=== PATIENT | female | born 1970 | race Caucasian/White ===

== ENCOUNTER 2020-09-26 12:21 | Emergency (ER) | payer SELFPAY | END 2020-09-27 05:35 | disposition left against medical advice (07) | DX: Z53.21 Procedure and treatment not carried out due to patient leaving prior to being seen by health care provider (principal) | CPT/HCPCS: 82962; 99199 ==

== ENCOUNTER 2021-11-12 13:42 | Emergency (ER) | payer SELFPAY ==
[2021-11-12 13:51] VITALS: BP 115/61; PULSE 71; RESP 19; TEMP 36.5; O2SAT 98
--- NOTE | 2021-11-12 14:02 | ED.URI ---
HPI - URI/Sore Throat General Chief Complaint: Upper Respiratory Infection Stated Complaint: Sinus Pain/Vomiting Time Seen by Provider: 11/12/21 14:00 Source: patient and RN notes reviewed Mode of arrival: ambulatory Limitations: no limitations History of Present Illness HPI Narrative: 51-year-old female presented for complaint of sinus pressure, congestion and headache worsening over the past 5 days. Endorses occasional nonproductive cough, which worsens the head pain. Also reports 1 episode of vomiting blood-tinged mucus today related to the post nasal drainage. Stats she has taken 'sinus medicine.' Negative COVID test 2 days ago in ER, stating she was told she had viral syndrome. Denies chest pain, palpitations, shortness of breath, wheezing, sore throat, fevers or chills. MD elicited complaint: cough Related Data Home Medications Medication Instructions Recorded Confirmed escitalopram oxalate 10 mg tablet 10 mg PO HS 11/12/21 11/12/21 (Lexapro) Allergies Allergy/AdvReac Type Severity Reaction Status Date / Time No Known Allergies Allergy Verified 11/12/21 14:15 Review of Systems Review of Systems: CONSTITUTIONAL: Denies malaise, chills, sweats, fever EYES: Denies visual changes, redness, or discharge ENT: Reports rhinorrhea, congestion, sinus pain, otalgia CARDIOVASCULAR: Denies chest pain, palpitations, edema RESPIRATORY: Reports cough, post nasal drainage. Denies dyspnea GASTROINTESTINAL: Denies abdominal pain, nausea, vomiting, diarrhea SKIN: Denies rash or itching MUSCULOSKELETAL: Denies myalgia Exam Narrative: GENERAL: Ill-appearing, nontoxic EYES: conjunctivae clear; bilateral eyes appear puffy ENT: Mucous membranes moist. TMs pearly perez with dull light reflex with fluid levels bilaterally; no tragal tenderness. CHEST: Lungs with faint wheezing left posterior; No respiratory distress, speaks in full sentences. HEART: Regular rate and rhythm. No murmur heard. SKIN: Warm, dry, no rash. NEURO: Alert and oriented x3. PSYCH: Normal mood and affect Course Course Emergency Course: Patient is aware of diagnosis, understands and agrees to treatment plan. Anticipatory guidance given. Patient agrees to follow-up as directed and is aware of reasons to seek care at the emergency department. Portions of this record may have been created with voice recognition software Level of Care: Express Care Visit Vital Signs Vital signs: reviewed MDM - URI/Sore Throat MDM Narrative Medical decision making narrative: Advised supportive measures and signs/symptoms to go to the ER. VSS. Pt is appropriate for outpt treatment and f/u. Differential Diagnosis Differential diagnosis: Likely upper respiratory infection, sinusitis and viral infection Discharge Plan Discharge Clinical Impression: Upper respiratory infection Patient Disposition: Home, Self-Care Condition: Stable Instructions: Upper Respiratory Infection (ED) Additional Instructions: Recommend Flonase spray and Zyrtec (or Claritin/Berkley) over the counter Cough syrup may cause drowsiness; avoid driving or take it at night time. Tylenol 1000mg every 8 hours as needed for pain Symptomatic treatment includes: rest, fluids, and increase humidity of the air at home. If no improvement in 3 days or symptoms worsen after the above treatments, start the antibiotic Follow up with your primary care provider as needed in 1-2 weeks Go to the ER for worsening symptoms or concerns Prescriptions: New cetirizine [Zyrtec] 10 mg tablet 10 mg PO DAILY PRN (Reason: congestion) Qty: 30 0RF methylprednisolone [Medrol (Jeff)] 4 mg tablets,dose pack See Rx Instructions .ROUTE .COMPLEX Qty: 21 0RF Rx Instructions: orally per package directions fluticasone propionate [Flonase Allergy Relief] 50 mcg/actuation spray,suspension 1 spray intranasal DAILY PRN (Reason: allergy symptoms) Qty: 16 0RF Rx Instructions: administer into
== END 2021-11-12 14:19 | disposition home or self-care (01) ==
PROVIDERS: Emergency Provider Nurse Practitioner Family
DX: J06.9 Acute upper respiratory infection, unspecified (principal)
CPT/HCPCS: 99213; G0463

== ENCOUNTER 2021-12-24 09:25 | Inpatient (IN) | payer MEDICAID, SELFPAY ==
[2021-12-24] VITALS (19 sets, daily range): BP systolic 110–146; BP diastolic 61–90; PULSE 67–89; RESP 10–22; TEMP 36.6–36.8; O2SAT 94–100; BMI 37.5
--- NOTE | ~2021-12-24 | XR_ITS ---
XR chest 2V DATE: 12/24/2021 10:00 INDICATION: Midsternal chest pain with inspiration TECHNIQUE: PA and lateral views COMPARISON: None FINDINGS: Normal heart size. No hilar or mediastinal enlargement. No pulmonary infiltrate or consolid ation, pleural effusion or pulmonary vascular congestion or pneumothorax. Included skeletal structures are unremarkable. IMPRESSION: No active cardiopulmonary disease Reviewed, dictated and finalized at location B.
--- NOTE | ~2021-12-24 | US_ITS ---
EXAMINATION: US abdomen limited DATE: 12/24/2021 16:39 INDICATION: Epigastric abdominal pain TECHNIQUE: Multiple grayscale and Doppler ultrasound images of the abdomen were obtained. COMPARISON: None available FINDINGS: Bowel gas obscures visualization of the pancreas. The liver demonstrates increased echogeni city, heterogenous echotexture, and decreased through transmission. No surface nodularity. Normal hep atopetal flow in the main portal vein. The gallbladder is normal with no abnormal wall thickening, pe richolecystic fluid or stones. The normal common bile duct measures 5 mm. There was no sonographic Mu rphy sign. IMPRESSION: 1. Diffuse hepatic steatosis. Reviewed, dictated and finalized at location A.
--- NOTE | ~2021-12-24 | CT_ITS ---
EXAMINATION: CTA chest PE protocol DATE: 12/24/2021 17:39 CDT INDICATION: Chest pain with inspiration TECHNIQUE: Computed tomographic angiography (CTA) of the chest was performed with 100 mL Omnipaque-35 0 intravenous contrast. The dose-length product was 626.66 mGy-cm. Maximum intensity projection 3D-re constructions of the aorta and other arteries were constructed by the technologist on a separate work station. Automated exposure control and iterative reconstruction technique were employed. COMPARISON: None. FINDINGS: Study is technically adequate without evidence for pulmonary embolism. No significant pleur al or pericardial effusion. No evidence for aortic aneurysm or dissection. Borderline heart size. Upp er abdomen is unremarkable. Cyst there is dependent atelectasis. No endobronchial lesions. There is a 4 mm right middle lobe nodule, likely benign. IMPRESSION: 1. No acute cardiopulmonary disease. No evidence for pulmonary embolism. 2: Right middle lobe nodule measuring 4 mm, likely benign. Follow-up low dose CT chest in 12 months r ecommended. Reviewed, dictated and finalized at location A. IMPRESSION: 1. No acute cardiopulmonary disease. No evidence for pulmonary embolism. 2: Right middle lobe nodule measuring 4 mm, likely benign. Follow-up low dose C T chest in 12 months recommended.
--- NOTE | 2021-12-24 09:35 | ECG_ITS ---
Measurements Intervals [place] Rate: 80 P: 61 [place]: 166 QRS: 47 QRSD: 89 T: 1 QT: 372 QTc: 430 Interpretive Statements SINUS RHYTHM POSSIBLE LEFT ATRIAL ENLARGEMENT INCOMPLETE RIGHT BUNDLE BRANCH BLOCK LOW QRS VOLTAGE IN PRECORDIAL LEADS MINIMAL Q WAVES- INFERIOR LEADS BORDERLINE ST-T WAVE ABNORMALITY- ANT/INF LEADS BORDERLINE ECG NO PREVIOUS ECG AVAILABLE FOR COMPARISON Electronically Signed On 12-24-2021 10:22:42 CDT by Adrian Gomez D.O.
[2021-12-24 09:44] LABS: Basophils Absolute Auto 0.1 K/mm3 (0.0-0.1); Basophils Percent Auto 0.5 % (0.2-1.2); Eosinophils Absolute Auto 0.3 K/mm3 (0-0.3); Eosinophils Percent Auto 2.8 % (0-4.4); Hemoglobin 14.3 g/dL (12.0-15.0); Immature Granulocyte Absolute 0.02 K/mm3 (0.00-0.031); Immature Granulocyte Percent A 0.2 % (0-0.5); Lymphocytes Absolute Auto 3.69 K/mm3 (0.9-3.2); Lymphocytes Percent Auto 34.3 % (18.3-44.2); Mean Corpuscular HGB Conc 33.3 g/dl (32-36); Mean Corpuscular Hemoglobin 30.1 pg (26-34); Mean Corpuscular Volume 90.5 fl (80-100); Mean Platelet Volume 9.8 fl (7.4-10.4); Monocytes Absolute Auto 0.7 K/mm3 (0.1-0.6); Monocytes Percent Auto 6.8 % (2.6-8.5); Neutrophils Percent Auto 55.4 % (45.5-73.1); Platelet Count Result 277 k/mm3 (150-375); Red Blood Count 4.75 M/mm3 (4.2-5.4); Red Cell Distribution Width 12.9 % (11.5-14.5); White Blood Count 10.8 K/mm3 (4.5-10.0)
[2021-12-24 09:54] LABS: Prothrombin Time 12.3 Seconds (11.1-14.7)
[2021-12-24 09:55] LABS: Partial Thromboplastin Time 26.9 SECONDS (22.3-36.8)
--- NOTE | 2021-12-24 10:01 | PC.NURSE ---
Patient off unit to radiology.
--- NOTE | 2021-12-24 10:04 | PC.NURSE ---
ASA held per verbal order.
[2021-12-24 10:07] LABS: Alanine Aminotransferase 32 U/L (6-35); Albumin Level 4.3 g/dL (3.5-5.1); Alkaline Phosphatase 122 U/L (38-126); Anion Gap 8 mmol/L (8-16); Aspartate Amino Transferase 50 U/L (14-36); Bilirubin,Total 0.4 mg/dL (0.2-1.3); Blood Urea Nitrogen 11 mg/dL (7-17); Calcium 8.9 mg/dL (8.4-10.2); Carbon Dioxide 24 mmol/L (22-30); Chloride 105 mmol/L (98-107); Estimated CRCL calculation 63 ml/min; Estimated Glomerular Filt Rate > 60; Glucose 147 mg/dL (65-110); Lipase 103 U/L (23-300); Potassium 4.2 mmol/L (3.4-5.0); Sodium 137 mmol/L (137-145)
--- NOTE | 2021-12-24 10:09 | ED.SOB ---
HPI - SOB/Dyspnea General Chief Complaint: Shortness of Breath/Dyspnea Stated Complaint: cheat pain, SOB, tongue swelling Time Seen by Provider: 12/24/21 09:39 History of Present Illness HPI Narrative: 51-year-old female history of anxiety presents emergency room for evaluation of inspiratory chest pain for 3 days. Patient also complaining of swollen tongue , which is caused her to bite her tongue on numerous occasions. Patient states the chest pain is worse when she takes in a deep breath. Admits to heavy tobacco use. Reports a cough, but is no different than her regular smoker's cough. No recent URI symptoms. No radiating pain, no nausea vomiting, no dizziness. Denies history of PE or DVT Related Data Home Medications Medication Instructions Recorded Confirmed escitalopram oxalate 10 mg tablet 10 mg PO HS 11/12/21 11/12/21 (Lexapro) Allergies Allergy/AdvReac Type Severity Reaction Status Date / Time No Known Allergies Allergy Verified 11/12/21 14:15 Review of Systems Review of Systems: CONSTITUTIONAL: Denies fever, chills, or sweats. EYES: Denies visual changes, redness, or discharge. ENT: Reports a swollen tongue CARDIOVASCULAR: Reports chest pain RESPIRATORY: Reports cough. GASTROINTESTINAL: Denies abdominal pain, nausea, vomiting, or diarrhea. GENITOURINARY: Denies dysuria or hematuria. SKIN: Denies rash or itching. MUSCULOSKELETAL: Denies back pain, joint pain, or myalgia. NEUROLOGIC: Denies headache, numbness, dizziness, or weakness. PSYCHIATRIC: Denies anxiety or depression. Exam Narrative: GENERAL: Well-appearing, well-nourished, no physical limitations, and in no acute distress. HEAD: Normocephalic, atraumatic. EYES: Conjunctivae normal, PERRLA and EOMI. CHEST: Clear to auscultation. No respiratory distress. No wheezes rales or rhonchi. No tenderness. HEART: Regular rate and rhythm. No murmur heard. Normal peripheral pulses. EXTREMITIES: Normal range of motion. No edema. No clubbing or cyanosis SKIN: Warm, dry, no rash. No noted wounds NEURO: No focal deficits. Alert and oriented x3. MAEW. CN's II-XI intact bilaterally, normal gait PSYCH: Cooperative. Normal mood and affect. Course Course Emergency Course: 1040: Discussed case with Dr. Tyler's nurse practitioner, Emma. She recommends patient be admitted for serial troponins and observation. Recommended to not anticoagulate patient at this time. Vital Signs Vital signs: Vital Signs Temperature 36.6 C 12/24/21 09:32 Pulse Rate 85 12/24/21 09:32 Respiratory Rate 16 12/24/21 09:32 Blood Pressure 146/85 H 12/24/21 09:32 Pulse Oximetry 98 12/24/21 09:32 Oxygen Delivery Room Air 12/24/21 09:32 Temperature 36.6 C 12/24/21 09:32 Pulse Rate 67 12/24/21 10:45 Respiratory Rate 12 12/24/21 10:45 Blood Pressure 146/85 H 12/24/21 09:32 Pulse Oximetry 97 12/24/21 10:45 Oxygen Delivery Room Air 12/24/21 10:01 MDM - SOB/Dyspnea MDM Narrative Medical decision making narrative: 51-year-old female with no cardiac history presented the emergency room complaints of inspiratory chest pain for 3 days. EKG showed no acute changes however there were some Q waves in lead II and aVF. Troponin was bumped to 3.1, likely an NSTEMI. Discussed case with Dr. Tyler with cardiology will admit patient to the IMU. Lab Data Result diagrams: 12/24/21 09:38 12/24/21 09:38 Labs: Lab Results 12/24/21 12/24/21 12/24/21 Range/Units 09:38 09:38 09:38 WBC 10.8 H (4.5-10.0) K/mm3 RBC 4.75 (4.2-5.4) M/mm3 Hgb 14.3 (12.0-15.0) g/dL Hct 43.0 (37.0-47.0) % MCV 90.5 (80-100) fl MCH 30.1 (26-34) pg MCHC 33.3 (32-36) g/dl RDW 12.9 (11.5-14.5) % Plt Count 277 (150-375) k/mm3 MPV 9.8 (7.4-10.4) fl Immature Gran % (Auto) 0.2 (0-0.5) % Neut % (Auto) 55.4 (45.5-73.1) % Lymph % (Auto) 34.3 (18.3-44.2) % [place] % (Auto) 6.8 (2.6-8.5)
--- NOTE | 2021-12-24 10:33 | ECG_ITS ---
Measurements Intervals [place] Rate: 72 P: 57 [place]: 175 QRS: 51 QRSD: 90 T: 27 QT: 412 QTc: 451 Interpretive Statements SINUS RHYTHM POSSIBLE LEFT ATRIAL ENLARGEMENT INCOMPLETE RIGHT BUNDLE BRANCH BLOCK LOW QRS VOLTAGE IN PRECORDIAL LEADS MINIMAL Q WAVES- INFERIOR LEADS BORDERLINE ST-T WAVE ABNORMALITY- ANT/INF LEADS BORDERLINE ECG COMPARED TO ECG 12/24/2021 09:32:20 NO SIGNIFICANT CHANGES Electronically Signed On 12-24-2021 11:11:01 CDT by Adrian Gomez D.O.
[2021-12-24] MEDS: ASPIRIN 81 MG CHEWABLE TABLET 324 MG PO (10:36)
[2021-12-24 10:41] LABS: D Dimer 0.36 ug/mL (<0.48)
[2021-12-24 11:08] LABS: SARS-CoV-2 RNA PCR Negative
--- NOTE | 2021-12-24 11:26 | PC.NURSE ---
Patient report given to MARTHA Clark. All questions answered and care of patient transferred.
[2021-12-24] MEDS: MORPHINE SULFATE (*CRX) 4 MG/ML INJ IV PUSH (12:29)
[2021-12-24] MEDS: ONDANSETRON INJ 4 MG/2 ML VIAL IV PUSH (12:29)
--- NOTE | 2021-12-24 13:42 | PM.IMHP ---
H&P: HPI History of Present Illness Date/Time: 12/24/21 13:42 Chief Complaint: Chest pain/shortness of breath/tongue swelling Narrative: This is a 51-year-old female patient who has a history of depression and anxiety. The patient came to the emergency room to be evaluated for chest pain that started approximately 3 days ago. The patient stated that she had epigastric discomfort that got worse with activity. She has no fever chills or cough except for her regular smoker's cough. The patient has no prior history of any PE or DVTs. The patient stated that this feels like pleuritic pain. She stated when she takes deep breaths at hurts worse. She also states that with activity it hurts worse. Rest makes it feels better. Patient does not take any aspirin or anticoagulant. The patient was given morphine in the emergency room and the patient stated that the morphine took her pain away for a short period time but the pain and then came back. The patient stated that she had epigastric pain that radiated to her left shoulder and left arm. She also felt some discomfort in her jaw line. Her white count was noted to be 10.8. Chest x-ray was read as no acute cardiopulmonary disease. First troponin was noted to be 3.170 initially with the 3 hour troponin being 3.090 and the 6 hour being 3.320. The patient was given morphine which appeared to help somewhat. Patient was found to be negative for COVID. The patient was given an aspirin, Zofran, morphine, and Decadron in the emergency room. EKG was read as sinus rhythm. Possible left atrial enlargement. Incomplete right bundle-branch block. Low QRS voltage in precordial leads. Minimal Q-waves inferior leads. Borderline ST T wave abnormality. Cardiology has been consulted and has already reviewed the case. Cardiology suggested a loading dose of Plavix and heparin drip. Is also recommended that the patient be started on atorvastatin and order an echo. The patient is being admitted for inpatient status on the date of service of 12/24/2021 Review of Systems Review of Systems: See HPI All systems reviewed & are unremarkable except as noted in HPI and below Constitutional: Constitutional: Reports as per HPI and Reports no additional constitutional complaints Eyes: Eyes: Reports as per HPI and Reports no additional eye complaints ENT: Reports system reviewed and no additional complaints, except as documented and Reports Normal hearing present Cardiovascular: Cardiovascular: Reports no additional cardiovascular complaints Respiratory: Respiratory: Reports no additional respiratory complaints and Reports no additional respiratory complaints Gastrointestinal: Gastrointestinal: Reports as per HPI and Reports no additional gastrointestinal complaints Musculoskeletal: Musculoskeletal: Reports no additional musculoskeletal complaints Integumentary/Breasts: Skin/Breast: Reports system reviewed and no additional complaints, except as docu and Reports as per HPI Neurologic: Reports system reviewed and no additional complaints, except as documented, Reports as per HPI and Reports Normal hearing present Psychiatric: Psychiatric: Reports no additional psychiatric complaints and Reports as per HPI Endocrine: Endocrine: Reports no additional endocrine complaints Hematologic/Lymphatic: Hematologic/Lymphatic: Reports no additional hematologic/lymphatic complaints Allergic/Immunologic: Allergic/Immunologic: Reports no additional allergic/immunologic complaints PMFSH Past Medical History Medical History (Updated 12/24/21 @ 16:17 by Deisy Landry NP) Acute sinus infection Depression with anxiety Seasonal allergies Surgical History Surgical History H/O tubal ligation Family History Family History Grandparent Heart disease Father MVA (motor vehicle accident) Mother MVA (motor vehicle a
[2021-12-24] MEDS: MORPHINE SULFATE (*CRX) 2 MG/ML INJ IV PUSH ×3 (15:35→20:48)
--- NOTE | 2021-12-24 16:11 | ADMGEN ---
This patient, Lidia Quinones, was admitted to IMU Room 206-02. Patient/family oriented to hospital policies and general routines including ID bracelet, bed and alarms, visiting hours, pain management, procedures, bathroom and other care routines, personal items, smoking policy, room service/diet, and visiting hours. Information on how to activate the Rapid Response Team has been discussed. Patient/Family are encouraged to report perceived risks to care and to ask questions if they do not understand what they are told or what they should do.
--- NOTE | 2021-12-24 16:25 | PM.CNCAR ---
Assessment and Plan Assessment and plan (1) Acute non-ST elevation myocardial infarction (NSTEMI): Code(s): I21.4 - Non-ST elevation (NSTEMI) myocardial infarction Status: Acute (2) Chest pain: Code(s): R07.9 - Chest pain, unspecified Status: Acute (3) Depression with anxiety: Code(s): F41.8 - Other specified anxiety disorders Status: Acute Plan Agree with CTA to rule out PE. Given degree of troponin elevation, would treat as ACS for now with Heparin drip, ASA (already loaded, would continue with 81mg daily), Plavix load of 600mg followed by 75mg, high-intensity statin. Will obtain echocardiogram. Although her clinical story sounds suspicious for possible myopericarditis, would need to rule out ischemic heart disease first. NPO at midnight for possible cardiac cath. History of Present Illness History of Present Illness Consult date/time: 12/24/21 16:25 Requesting physician: Christian Mckeon APRN Consult reason: chest pain Reason For Visit: nstemi Narrative: Patient is a 51-year-old female with a history of anxiety and depression who presented to the ER with chest pain x 3 days. Patient locates her pain to the epigastric region. Started suddenly 3 days ago, patient isn't sure what she was doing at the time of the onset of pain, but thinks she was resting. Pain has been constant. Worsens with laying down, improves with sitting up. Reports exertional shortness of breath. No radiation of the pain. Reports having pleurisy two years ago, but states this feels different. Has not had chest pain in the past. No other medical issues. Smokes 6 cigarettes daily. Occasional ETOH. No recreational drug use. Patient states she had a sinus infection approximately 4 weeks ago. Review of Systems Review of Systems: All systems reviewed & are unremarkable except as noted in HPI and below (HPI) Constitutional: Constitutional: Denies body ache(s), Denies chills and Denies night sweats Cardiovascular: Cardiovascular: Reports chest pain, Denies leg edema, Denies lightheadedness and Denies palpitations Respiratory: Respiratory: Denies cough, Denies hemoptysis, Reports dyspnea on exertion and Denies wheezing Gastrointestinal: Gastrointestinal: Denies abdominal pain, Denies diarrhea, Denies nausea and Denies vomiting Hematologic/Lymphatic: Hematologic/Lymphatic: Denies easy bleeding and Denies easy bruising PMFSH Past Medical History Medical History Acute sinus infection Depression with anxiety Seasonal allergies Surgical History Surgical History H/O tubal ligation Family History Family History Grandparent Heart disease Father MVA (motor vehicle accident) Mother MVA (motor vehicle accident) Social History Social History Social History: The patient is and lives with her . She had 2 children but one is now . Her is the poa. She still continues to smoke 6 cigarettes a day. 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 She stated that she is a Social drinker. She denies any marijuana or other illicit drugs. Code status full code Smoking status: Current some day smoker Meds Home Medications and Allergies Home Medications Medication Instructions Recorded Confirmed Type amoxicillin 875 mg-potassium 1 tablet PO Q12H 7 days #14 tabs 11/12/21 Rx clavulanate 125 mg tablet cetirizine 10 mg tablet (Zyrtec) 10 mg PO DAILY PRN congestion #30 11/12/21 Rx tabs escitalopram oxalate 10 mg tablet 10 mg PO HS 11/12/21 11/12/21 History (Lexapro) fluticasone propionate 50 1 spray intranasal DAILY PRN 11/12/21 Rx mcg/actuation nasal allergy symptoms #16 grams spray,suspension (Flonase Allergy Relief) methylprednisolone 4 mg tablets in See Rx Instruct
[2021-12-24 16:59] LABS: Basophils Absolute Auto 0.1 K/mm3 (0.0-0.1); Basophils Percent Auto 0.4 % (0.2-1.2); Eosinophils Absolute Auto 0.2 K/mm3 (0-0.3); Eosinophils Percent Auto 1.5 % (0-4.4); Hematocrit 42.4 % (37.0-47.0); Hemoglobin 13.9 g/dL (12.0-15.0); Immature Granulocyte Absolute 0.04 K/mm3 (0.00-0.031); Immature Granulocyte Percent A 0.3 % (0-0.5); Lymphocytes Absolute Auto 3.44 K/mm3 (0.9-3.2); Lymphocytes Percent Auto 28.5 % (18.3-44.2); Mean Corpuscular HGB Conc 32.8 g/dl (32-36); Mean Corpuscular Hemoglobin 29.8 pg (26-34); Monocytes Absolute Auto 0.7 K/mm3 (0.1-0.6); Monocytes Percent Auto 6.1 % (2.6-8.5); Neutrophils Absolute Auto 7.6 K/mm3 (1.3-6.7); Neutrophils Percent Auto 63.2 % (45.5-73.1); Platelet Count Result 257 k/mm3 (150-375); Red Blood Count 4.66 M/mm3 (4.2-5.4); Red Cell Distribution Width 12.9 % (11.5-14.5); White Blood Count 12.1 K/mm3 (4.5-10.0)
[2021-12-24 17:14] LABS: Partial Thromboplastin Time 27.2 SECONDS (22.3-36.8); Prothrombin Time 12.6 Seconds (11.1-14.7)
[2021-12-24] MEDS: CLOPIDOGREL BISULFATE 300 MG TABLET 600 MG PO (18:16)
[2021-12-24] MEDS: HEPARIN SOD/D5W 100 UNITS/ML 25,000 UNITS/250 ML BAG 7 UNITS IV CONT (18:18)
[2021-12-24] MEDS: HEPARIN SODIUM 5,000 UNITS/ML VIAL 3500 UNITS IV PUSH (18:18)
[2021-12-24] MEDS: ESCITALOPRAM OXALATE 10 MG TABLET PO (20:48)
[2021-12-24] MEDS: PANTOPRAZOLE SODIUM IV 40 MG VIAL IV PUSH (21:31)
[2021-12-24] MEDS: NITROGLYCERIN SL 0.4 MG TABLET SUBLINGUAL (22:15)
[2021-12-25] VITALS (34 sets, daily range): BP systolic 88–132; BP diastolic 42–87; PULSE 62–92; RESP 11–18; TEMP 36.2–36.9; O2SAT 90–98
--- NOTE | 2021-12-25 | ECHO_ITS ---
Patient Info Name: Lidia Quinones Age: 51 years : 1970 Gender: Female Ht: 61 in Wt: 150 lbs BSA: 1.73 m2 HR: 70 bpm BP: 132 / 85 mmHg Heart Rhythm: Sinus Rhythm Exam Date: 12/25/2021 11:16 AM Exam Location: [facility] Patient Status: Inpatient Admit Date: 12/24/2021 Staff Ordering Physician: Akash Tyler MD (miranda/gillian) Piano Teacher: Rene Hernandez, RDCS, RT Attending Provider: Jimmie Noguera MD Referring Physician: Jayson RAMIREZ; Exam Type: CA echo dop color flow w con Study Info Indications I50.9 - Heart failure, unspecified Complete two-dimensional, color flow and Doppler transthoracic echocardiogram is performed with contrast to opacify the left ventricle and to improve the deliniation of the left ventricle endocardial borders. Summary 1. Left ventricular systolic function is normal, estimated at 60-65%. 2. The posterior basal segment is hypodynamic. 3. No valvular dysfunction. Left Ventricle Left ventricular chamber dimension is normal. Left ventricular systolic function is normal, estimated at 60-65%. The left ventricular diastolic function is grade I diastolic dysfunction. The posterior basal segment is hypodynamic. Right Ventricle Right ventricular chamber dimension is normal. Left Atria Left atrial chamber dimension is normal. Right Atria Right atrial chamber dimension is normal. Aortic Valve The aortic valve is normal. Pulmonic Valve The pulmonic valve is not well visualized. Mitral Valve The mitral valve has normal leaflets. Tricuspid Valve The tricuspid valve leaflets are normal. Pericardium/Pleural The pericardium appears normal. Aorta The aortic root size at the sinus of Valsalva is normal. Left Ventricular Outflow Tract Name Value Normal LVOT 2D LVOT Diameter 2.00 cm LVOT Doppler LVOT Peak Gradient 4 mmHg LVOT Mean Gradient 2 mmHg LVOT VTI 16.41 cm LVOT VTI/AV VTI Ratio 0.80 LVOT Stroke Volume 51.48 ml Mitral Valve Name Value Normal MV Doppler MV Decel [place] 515.74 cm/s2 MV PHT 0 s MV Area (PHT) 4.86 cm2 4.00-5.00 MV Diastolic Function MV E Peak Velocity 80.55 cm/s MV A Peak Velocity 103.12 cm/s MV E/A 0.78 MV Decel Time 0 s Aortic Valve Name Value Normal AV Doppler
[2021-12-25 01:05] LABS: Partial Thromboplastin Time 32.7 SECONDS (22.3-36.8)
[2021-12-25] MEDS: MORPHINE SULFATE (*CRX) 4 MG/ML INJ IV PUSH ×4 (01:14→22:37)
[2021-12-25] MEDS: HEPARIN SODIUM 5,000 UNITS/ML VIAL 4000 UNITS IV PUSH ×2 (01:20→07:59)
[2021-12-25] MEDS: diphenhydrAMINE HCl CAP 25 MG CAPSULE PO (02:35)
[2021-12-25 05:05] LABS: Basophils Absolute Auto 0.1 K/mm3 (0.0-0.1); Basophils Percent Auto 0.5 % (0.2-1.2); Eosinophils Absolute Auto 0.3 K/mm3 (0-0.3); Eosinophils Percent Auto 2.1 % (0-4.4); Hematocrit 39.3 % (37.0-47.0); Hemoglobin 12.9 g/dL (12.0-15.0); Immature Granulocyte Absolute 0.04 K/mm3 (0.00-0.031); Immature Granulocyte Percent A 0.3 % (0-0.5); Lymphocytes Absolute Auto 4.76 K/mm3 (0.9-3.2); Lymphocytes Percent Auto 37.8 % (18.3-44.2); Mean Corpuscular HGB Conc 32.8 g/dl (32-36); Mean Corpuscular Hemoglobin 30.1 pg (26-34); Mean Corpuscular Volume 91.6 fl (80-100); Mean Platelet Volume 9.8 fl (7.4-10.4); Monocytes Absolute Auto 0.8 K/mm3 (0.1-0.6); Neutrophils Absolute Auto 6.7 K/mm3 (1.3-6.7); Neutrophils Percent Auto 53.3 % (45.5-73.1); Platelet Count Result 263 k/mm3 (150-375); Red Blood Count 4.29 M/mm3 (4.2-5.4); Red Cell Distribution Width 12.8 % (11.5-14.5); White Blood Count 12.6 K/mm3 (4.5-10.0)
[2021-12-25 05:17] LABS: Partial Thromboplastin Time 82.9 SECONDS (22.3-36.8)
[2021-12-25 05:19] LABS: Alanine Aminotransferase 28 U/L (6-35); Alkaline Phosphatase 114 U/L (38-126); Anion Gap 8 mmol/L (8-16); Aspartate Amino Transferase 37 U/L (14-36); Bilirubin,Total 0.5 mg/dL (0.2-1.3); Blood Urea Nitrogen 11 mg/dL (7-17); CRP 1.1 mg/dL (<1.0); Calcium 8.5 mg/dL (8.4-10.2); Carbon Dioxide 27 mmol/L (22-30); Chloride 102 mmol/L (98-107); Estimated CRCL calculation 66 ml/min; Estimated Glomerular Filt Rate > 60; Glucose 135 mg/dL (65-110); Lipase 109 U/L (23-300); Magnesium 1.8 mg/dL (1.6-2.3); Potassium 4.1 mmol/L (3.4-5.0); Sodium 137 mmol/L (137-145)
[2021-12-25 05:20] LABS: Lactic Acid Reflex 1.4 mmol/L (0.7-2.0)
[2021-12-25 06:48] LABS: Free T4 Free Thyroxine Reflex 0.81 ng/dL (0.78-2.19)
[2021-12-25] MEDS: ASPIRIN 81 MG ENTERIC TABLET PO (07:59)
[2021-12-25] MEDS: CLOPIDOGREL BISULFATE 75 MG TABLET PO (07:59)
[2021-12-25] MEDS: PANTOPRAZOLE SODIUM IV 40 MG VIAL IV PUSH ×2 (07:59→21:49)
[2021-12-25 09:59] LABS: Total Triiodothyronine (T3) 1.18 NG/ML (0.97-1.69)
--- NOTE | 2021-12-25 10:04 | PM.IMPN ---
Progress Note: A&P Assessment and Plan (1) Chest pain: Code(s): R07.9 - Chest pain, unspecified Status: Acute Assessment and Plan: -the patient has had elevated troponins. - continue heparin drip and anti-platelet - further plans per Cardiology (2) Depression with anxiety: Code(s): F41.8 - Other specified anxiety disorders Status: Acute Assessment and Plan: -continue with home medication of Lexapro once her home medications have been reconciled. Subjective Date/time seen: 12/25/21 10:04 patient has mild chest pain. Much improved Exam Const: General: cooperative, healthy appearing, comfortable, no acute distress, well developed, alert, awake and Physically active Nutritional Appearance: average body habitus and well nourished Orientation/consciousness: oriented to person, oriented to place, oriented to time and patient oriented x3 Limitations: no limitations HENMT: Head: normal to inspection, No palpable skull fracture present, normocephalic, atraumatic and abrasion Ears: hearing grossly normal bilaterally, external ears normal and TM's normal bilaterally General nose exam: Normal external nose present, Normal nares present and No nasal polyps present Mouth: Yes Normal oral and palatal mucosa present Throat: posterior oropharynx normal Eyes: General: appearance normal, both eyes and all related structures Alignment and Position: alignment normal Periorbital: periorbital findings normal Eyelids: eyelids normal Conjunctivae: conjunctivae normal Sclera: sclerae normal Cornea: corneas normal Pupils: Equal, round and reactive pupils present and Pupil accommodation reflex normal EOM: EOMs intact bilaterally Neck: Neck: normal visual inspection, full ROM, no lymphadenopathy, trachea midline and supple Thyroid: thyroid normal Carotids: normal carotid upstroke Lymphatic: no lymphadenopathy noted Chest: Chest palpation & inspection: normal inspection of the chest Resp: Effort & Inspection: normal respiratory effort Auscultation: clear to auscultation bilaterally Percussion: percussion normal Cardio: Palpation: normal PMI Rate: regular rate Rhythm: regular rhythm Heart sounds: S1 normal heart sound present and S2 normal heart sound present Peripheral pulses: Peripheral pulses 2+ throughout GI: Inspection: normal to inspection Auscultation: normal bowel sounds Rectal Exam: deferred : General: Yes no CVA tenderness Back/Spine/Pelvis: Back: no CVA tenderness Cervical Spine: cervical ROM normal Thoracic/Lumbar Spine: thoracic and lumbar spine normal to inspection Pelvis: no pain with anterior-posterior compression Skin: General skin exam: normal color Lesions: no lesions Rashes: no rashes Trauma: no lacerations or abrasions Wounds: no wounds Hair: normal Nails: normal Neuro: General: oriented to person, oriented to place, oriented to time and patient oriented x3 Cranial nerves: Yes Equal, round and reactive pupils present and Yes Normal hearing present Cognition (Neuro): normal cognition Speech: normal speech Gait exam (Neuro): Normal gait present Motor exam (neuro): 5/5 motor strength present throughout Sensory Exam: normal sensation Extrem: General: normal to inspection Right upper extremity: normal to inspection and shoulder/upper arm Left upper extremity: normal to inspection and shoulder/upper arm Right lower extremity: normal to inspection Left lower extremity: normal to inspection Psych: Appearance: grossly normal Mental Status: mental status grossly normal Speech and movement: Normal speech and movement present Affect: normal affect Attitude: cooperative Thought process: Normal thought process present Insight: Good insight present (Psych) Judgement: Good judgement present (Psych) Objective Data Vital Signs Vital Signs: Vital Signs - 24 hr 12/24/21 10:42 12/24/21 10:45 12/24/21 12:40 Temperature Pulse Rate 74 67 75 Respiratory Rate 13 12 1
--- NOTE | 2021-12-25 10:18 | WPDMODSED ---
Moderate Sedation Note-Pt Data Patient Data Diagnosis: Chest pain/elevated troponin Present Complaint: Mild residual chest pain feels better than admission Procedure to be performed/Plan: Left heart catheterization Allergies Allergy/AdvReac Type Severity Reaction Status Date / Time No Known Allergies Allergy Verified 11/12/21 14:15 Home Medications Medication Instructions Recorded Confirmed Type escitalopram oxalate 10 mg tablet 10 mg PO HS 11/12/21 12/24/21 History (Lexapro) Current Medications: Active Medications Aspirin (Aspirin 81 Mg Enteric Tablet) [facility] [place] Last Admin: 12/25/21 07:59 Dose: 81 mg Clopidogrel Bisulfate (Clopidogrel Bisulfate 75 Mg Tablet) 75 mg PO [facility] Last Admin: 12/25/21 07:59 Dose: 75 mg Escitalopram Oxalate (Escitalopram Oxalate 10 Mg Tablet) 10 mg PO [facility] Last Admin: 12/24/21 20:48 Dose: 10 mg Heparin Sodium (Porcine) (Heparin Sodium 5,000 Units/Ml Vial) 4,000 units IV PUSH PRN PRN PRN Reason: aPTT less than 55 seconds Last Admin: 12/25/21 07:59 Dose: 4,000 units Heparin Sodium (Porcine) (Heparin Sodium 5,000 Units/Ml Vial) 2,000 units IV PUSH PRN PRN PRN Reason: aPTT 55 - 70 seconds Heparin Sodium/Dextrose (Heparin Sodium/D5w 100 Units/Ml) 25,000 units in 250 mls @ 11 mls/hr IV CONT .[id number] [facility]; Protocol Last Titration: 12/25/21 08:02 Dose: 1,100 units/hr, 11 mls/hr Morphine Sulfate (Morphine Sulfate (*Crx) 4 Mg/Ml Inj) 4 mg IV PUSH Q4H PRN PRN Reason: Pain Rated 7-10 Last Admin: 12/25/21 09:29 Dose: 4 mg Nitroglycerin (Nitroglycerin Sl 0.4 Mg Tablet) 0.4 mg SUBLINGUAL Q5MIN PRN PRN Reason: Chest Pain Last Admin: 12/24/21 22:15 Dose: 0.4 mg Pantoprazole Sodium (Pantoprazole Sodium Iv 40 Mg Vial) 40 mg IV PUSH Q12HR [facility] Last Admin: 12/25/21 07:59 Dose: 40 mg Perflutren Lipid Microsphere (Perflutren Lipid Microspheres 1.5 Ml Vial Diluted To 10 Ml Total Volume) 0 ml IV PUSH ONCE PRN; Protocol PRN Reason: adequate visualization Stop: 12/26/21 15:28 Sedation/Anesthesia: No previous sedation/anesthesia problems (including family history). [facility] Past Medical History Medical History Acute sinus infection Depression with anxiety Seasonal allergies Surgical History Surgical History H/O tubal ligation Family History Family History Grandparent Heart disease Father MVA (motor vehicle accident) Mother MVA (motor vehicle accident) Social History Social History Social History: The patient is and lives with her . She had 2 children but one is now . Her is the poa. She still continues to smoke 6 cigarettes a day. 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 She stated that she is a Social drinker. She denies any marijuana or other illicit drugs. Code status full code Smoking status: Current every day smoker Tobacco type: cigarettes Spiritual care concerns: No Mod Sed Physical Exam Physical Exam Pre Procedural Exam: Normal: Neck, Throat, Airway, Lungs, Heart Size, Heart Rate, Heart Rhythm, Neuro Exam and Extremities and Variation: Appearance (Pleasant obese lady no apparent distress) Hours since solid foods: 12 Hours since liquid intake: 12 Mallampati Classification: class II Internal Medicine - PN: Obj Da Vital Signs Vital Signs: Vital Signs - 24 hr 12/24/21 10:42 12/24/21 10:45 12/24/21 12:40 Temperature Pulse Rate 74 67 75 Respiratory Rate 13 12 10 L Blood Pressure Pulse Oximetry 97 95 Oxygen Delivery 12/24/21 12:45 12/24/21 13:00 12/24/21 13:15 Temperature Pulse Rate 72 74 73 Respiratory Rate 16 16 12 Blood Pressure 141/88 H 119/90 Pulse Oximetry 96 96 94 Oxygen Delivery 12/24/21 15:06 12/24/21 15:15 12/24/21 15:30 Temp
[2021-12-25] MEDS: PERFLUTREN LIPID MICROSPHERES 1.5 ML VIAL DILUTED TO 10 ML TOTAL VOLUME IV PUSH (10:40)
--- NOTE | 2021-12-25 10:41 | IVDEFINITY ---
Prior to administration of IV Definity the patient was educated on the risks and benefits of the imaging enhancing agent including potential adverse side effects. The patient verbalized understanding. Allergies were verified. No exclusion criteria were identified and at least one of the following inclusion criteria were met: 1) physician request, 2) patient technically difficult to image (per the [employer] [employer]ocardi[employer] guidelines of two or more segments not discernable within the apical view), or 3) questionable left ventricular function. ?
--- NOTE | 2021-12-25 12:35 | ECG_ITS ---
Measurements Intervals [place] Rate: 78 P: 63 TN: 180 QRS: 52 QRSD: 102 T: 16 QT: 425 QTc: 484 Interpretive Statements SINUS RHYTHM VENTRICULAR BIGEMINY INCOMPLETE RIGHT BUNDLE BRANCH BLOCK BORDERLINE ST-T WAVE ABNORMALITY- DIFFUSE LEADS ABNORMAL ECG COMPARED TO ECG 12/24/2021 10:54:02 VENTRICULAR BIGEMINY NOW PRESENT Electronically Signed On 12-25-2021 13:01:35 CDT by Adrian Gomez D.O.
--- NOTE | 2021-12-25 12:39 | WPDCARDPROC ---
Cardiac Cath Procedure Note Date of procedure:: 12/25/21 Performing physician:: German Caruso MD Indication:: non ST-elevation WI Brief clinical history:: this is a 51-year-old woman without previous history of coronary disease. She entered the hospital with chest pain with moderate elevation of troponin and no significant ECG abnormalities. Because of the clinical diagnosis of ACS catheterization has been recommended. Yesterday she was given aspirin and a loading dose of clopidogrel. Procedure Procedure performed:: Left ventriculogram coronary angiogram PCI(NAVNEET) to the distal OM circumflex branch Sedation/Medication given:: Versed 2 mg case start time 11:23 a.m. case end time 12:30 p.m. sedation provided by Eliane Negro RN, trained observer Access site:: right femoral artery Estimated blood loss:: 30 cc Procedure note:: patient was brought to the cardiac catheterization lab in a postabsorptive state the right femoral triangle was prepared and draped in a normal fashion. Anesthesia was provided with 1% lidocaine infiltrated locally. Using the modified Seldinger technique the femoral artery was punctured a 5 Irish vascular sheath was placed. After this I used a 5 Irish angled pigtail catheter to document left-sided hemodynamics and perform a left ventriculogram in our AO projection. Following this left coronary angiograms were done using 5 Irish FL4 catheter. Right coronary angiograms were done using a standard 5 Irish JR4 catheter. The cineangiograms were and then PCI of the distal circumflex was recommended and carried out as detailed below. Prior to PCI the 5 Irish sheath was exchanged out for a 6 Irish sheath as she was then systemically anticoagulated with bolus and infusion of Angiomax. Patient was already on aspirin and had been loaded with clopidogrel yesterday and was not given additional anti-platelet therapy for this intervention. The intervention the sheath was sutured into position the patient taken to the holding area for recovery and sheath removal. Procedure was well tolerated and uncomplicated. Findings:: Hemodynamics: Central aortic pressure is 104 over 63 left ventricle 104/4 end-diastolic 16 there is no gradient on pullback across the aortic. Left ventricle: The LV is normal in size the posterior segment appears to be akinetic of the LV contracts well the global ejection fraction is 60%. The left main coronary artery is nicely patent and has a superior takeoff the left anterior descending is a moderate caliber artery extending down to and around the apex. There is no significant disease in the LAD. There is a well-developed collateral seen from the LAD around the apex to the distal right coronary artery as well. The circumflex is a moderate caliber artery giving rise to a very small proximal marginal branch then there is a large bifurcating marginal branch. The inferior branch of this has a 80% stenosis. Distal to this there is another distal OM branch at the posterolateral wall that is 100% occluded. This appears to be a recent fresh thrombotic occlusion based on the angiographic appearance. The right coronary artery is medium in caliber and dominant to the posterior circulation right coronary artery is 100% occluded the 2nd portion. There is [id number] collateral filling of the distal right there is also what appears to be antegrade collateral filling of providing slow flow into the distal RCA system as well. Intervention: The left coronary artery was engaged using a CLS 3.0 guiding catheter I used a 0.[address] guidewire to wire the lesion and to traverse the distal OM branch and advanced the wire into the distal segment of this artery. The vessel was then pre-dilated using a 2.5 x 20 mm balloon restoring JOE 3 flow in the vessel. I then stented the lesion using a 3.0 x 18 mm Orsiro stent with a good anatomic result. stent was deployed at 10 atmosph
--- NOTE | 2021-12-25 14:34 | PC.NURSE ---
Cardiopulmonary Rehab Services flyer was given to patient cardiac admission folder.
[2021-12-25] MEDS: SODIUM CHLORIDE 0.9% IV 1,000 ML 125 ML IV CONT (15:08)
[2021-12-25 20:10] LABS: Partial Thromboplastin Time 32.7 SECONDS (22.3-36.8)
[2021-12-25] MEDS: ESCITALOPRAM OXALATE 10 MG TABLET PO (21:49)
[2021-12-26] VITALS (11 sets, daily range): BP systolic 107–115; BP diastolic 63–71; PULSE 67–91; RESP 16–20; TEMP 36.4–36.9; O2SAT 93–95
--- NOTE | 2021-12-26 05:11 | ECG_ITS ---
Measurements Intervals [place] Rate: 61 P: 10 NE: 175 QRS: 22 QRSD: 106 T: 26 QT: 433 QTc: 437 Interpretive Statements SINUS RHYTHM INCOMPLETE RIGHT BUNDLE BRANCH BLOCK LOW QRS VOLTAGE IN PRECORDIAL LEADS CONSIDER INFERIOR INFARCT, AGE INDETERMINATE BORDERLINE ST-T WAVE ABNORMALITY- ANTEROLATERAL LEADS ABNORMAL ECG COMPARED TO ECG 12/25/2021 12:53:28 VENTRICULAR BIGEMINY HAS RESOLVED Electronically Signed On 12-26-2021 8:55:22 CDT by Adrian Gomez D.O.
[2021-12-26] MEDS: CLOPIDOGREL BISULFATE 75 MG TABLET PO (09:33)
[2021-12-26] MEDS: ATORVASTATIN 40 MG TABLET 80 MG PO (09:33)
[2021-12-26] MEDS: ASPIRIN 81 MG ENTERIC TABLET PO (09:33)
[2021-12-26] MEDS: PANTOPRAZOLE SODIUM IV 40 MG VIAL IV PUSH (09:33)
[2021-12-26] MEDS: LOSARTAN POTASSIUM 25 MG TABLET PO (09:33)
--- NOTE | 2021-12-26 10:43 | PM.DS ---
DS: Admitting Diagnosis Discharge Date December 26, 2021 Admitting Diagnosis chest pain, non STEMI, stent placement DS: Discharge Diagnosis Discharge Diagnosis (1) Chest pain: Code(s): R07.9 - Chest pain, unspecified Status: Acute Assessment and Plan: -the patient has had elevated troponins. - continue heparin drip and anti-platelet - further plans per Cardiology (2) Depression with anxiety: Code(s): F41.8 - Other specified anxiety disorders Status: Acute Assessment and Plan: -continue with home medication of Lexapro once her home medications have been reconciled. DS: Summary Hospital Course Hospital Course: patient is a 51-year-old female who came in with chest pain and found to have non ST elevation MA. She underwent catheterization and found multiple coronary disease that had some issues she did receive a stent to 1 of her coronary arteries. Medically she has been stabilized and can be sent home on cardioprotective medications. Patient will be sent home on aspirin, Plavix, statin, blood pressure medications as well. Otherwise she is stable currently can be discharged she will need follow-up with Cardiology. Time Spent with Patient Time attestation: Total time spent providing and/or coordinating discharge services: Exam Const: General: cooperative, healthy appearing, comfortable, no acute distress, well developed, alert, awake and Physically active Nutritional Appearance: average body habitus and well nourished Orientation/consciousness: oriented to person, oriented to place, oriented to time and patient oriented x3 Limitations: no limitations HENMT: Head: normal to inspection, No palpable skull fracture present, normocephalic, atraumatic and abrasion Ears: hearing grossly normal bilaterally, external ears normal and TM's normal bilaterally General nose exam: Normal external nose present, Normal nares present and No nasal polyps present Mouth: Yes Normal oral and palatal mucosa present Throat: posterior oropharynx normal Eyes: General: appearance normal, both eyes and all related structures Alignment and Position: alignment normal Periorbital: periorbital findings normal Eyelids: eyelids normal Conjunctivae: conjunctivae normal Sclera: sclerae normal Cornea: corneas normal Pupils: Equal, round and reactive pupils present and Pupil accommodation reflex normal EOM: EOMs intact bilaterally Neck: Neck: normal visual inspection, full ROM, no lymphadenopathy, trachea midline and supple Thyroid: thyroid normal Carotids: normal carotid upstroke Lymphatic: no lymphadenopathy noted Chest: Chest palpation & inspection: normal inspection of the chest Resp: Effort & Inspection: normal respiratory effort Auscultation: clear to auscultation bilaterally Percussion: percussion normal Cardio: Palpation: normal PMI Rate: regular rate Rhythm: regular rhythm Heart sounds: S1 normal heart sound present and S2 normal heart sound present Peripheral pulses: Peripheral pulses 2+ throughout GI: Inspection: normal to inspection Auscultation: normal bowel sounds Rectal Exam: deferred : General: Yes no CVA tenderness Back/Spine/Pelvis: Back: no CVA tenderness Cervical Spine: cervical ROM normal Thoracic/Lumbar Spine: thoracic and lumbar spine normal to inspection Pelvis: no pain with anterior-posterior compression Skin: General skin exam: normal color Lesions: no lesions Rashes: no rashes Trauma: no lacerations or abrasions Wounds: no wounds Hair: normal Nails: normal Neuro: General: oriented to person, oriented to place, oriented to time and patient oriented x3 Cranial nerves: Yes Equal, round and reactive pupils present and Yes Normal hearing present Cognition (Neuro): normal cognition Speech: normal speech Gait exam (Neuro): Normal gait present Motor exam (neuro): 5/5 motor strength present throughout Sensory Exam: normal sensation Extrem: General: normal to inspection R
--- NOTE | 2021-12-26 14:47 | PM.PNCARD ---
Progress Note: A&P Assessment and Plan (1) Acute non-ST elevation myocardial infarction (NSTEMI): Code(s): I21.4 - Non-ST elevation (NSTEMI) myocardial infarction Status: Acute Assessment and Plan: Patient admitted with a non-STEMI, found to have a recent occlusion of an obtuse marginal which was stented with a 3.0 mm drug-eluting stent by Dr. Caruso. Overall good left ventricular function. Does have some other lesions, small vessels and what appears to be a chronically occluded mid RCA which fills well by collaterals, and which can be evaluated further as an outpatient. In the meantime continue medical therapy. Discussed the need for dual anti-platelet therapy; important to remain compliant with daily use otherwise there can occur stent thrombosis, heart attack and . Discussed heart healthy diet, activity Add beta-ines Discussed other meds Follow-up in our office. Patient travels a lot and is out of town a lot but I recommended she find a primary care doctor in [facility] and also in [place] where she spends some time. (2) Tobacco use: Code(s): Z72.0 - Tobacco use Status: Acute Assessment and Plan: Patient has few risk factors for CAD but 1 that is modifiable is her tobacco use. Smoking cessation strongly encouraged. Subjective Date/time seen: Patient admitted with somewhat atypical chest pain but evidence of a non-STEMI. Cardiac catheterization yesterday showed an occluded distal obtuse marginal branch the circumflex which was thought to be the culprit, stented by Dr. Caruso with a 3.0 x 18 mm Osiro stent. She also has 80% stenosis of a inferior sub branch of a bifurcating obtuse marginal, and occlusion of the mid RCA which filled well with collaterals. Posterior akinesis. 12/26/21 14:47 Patient is doing well, tired but feeling better, no chest pain. Family at bedside. Many questions, answered to their satisfaction. Review of Systems Constitutional: Constitutional: Denies fever(s) Cardiovascular: Cardiovascular: Denies chest pain, Denies pedal edema, Denies lightheadedness and Denies dyspnea Respiratory: Respiratory: Denies chest congestion and Denies dyspnea Gastrointestinal: Gastrointestinal: Denies abdominal pain and Denies hematochezia Musculoskeletal: Musculoskeletal: Reports no additional musculoskeletal complaints Integumentary/Breasts: Skin/Breast: Reports system reviewed and no additional complaints, except as docu Neurologic: Reports system reviewed and no additional complaints, except as documented, Denies behavioral changes and Denies confusion Psychiatric: Psychiatric: Denies behavioral changes and Denies confusion Exam Const: General: cooperative, healthy appearing and comfortable; No confusion Orientation/consciousness: oriented to person, patient oriented x3 and No confusion Resp: Effort & Inspection: normal respiratory effort Auscultation: clear to auscultation bilaterally Cardio: Rate: regular rate Rhythm: regular rhythm Other: Cath site right femoral area is doing well with no hematoma or ecchymosis. Pedal pulses right side are normal. GI: Inspection: normal to inspection GI Palp: No abdominal tenderness Neuro: General: oriented to person, patient oriented x3 and No confusion Extrem: Right lower extremity: no edema Left lower extremity: no edema Psych: Appearance: grossly normal Mental Status: mental status grossly normal Objective Data Vital Signs Vital Signs: Vital Signs - 24 hr 12/25/21 15:00 12/25/21 16:00 12/25/21 15:10 Temperature Pulse Rate 69 72 72 Respiratory Rate 16 14 15 Blood Pressure 108/69 98/62 L 98/73 L Pulse Oximetry 94 93 97 Oxygen Delivery Room Air Room Air Room Air 12/25/21 15:15 12/25/21 15:20 12/25/21 15:25 Temperature Pulse Rate 74 67 65 Respiratory Rate 13 12 11 L Blood Pressure 91/73 L 97/73 L 97/76 L Pulse Oximetry 98 93 93 Oxygen Delivery Room Air Room Air Room Air
== END 2021-12-26 15:40 | disposition home or self-care (01) | DRG 174 ==
LOC: ANHED 11:31 → ANHIMU 13:27
PROVIDERS: Emergency Medicine; Nurse Practitioner; Specialist; Admitting Provider Internal Medicine; Emergency Provider Nurse Practitioner Family; Visit Provider Chiropractor
PROC: 027034Z Dilation of Coronary Artery, One Artery with Drug-eluting Intraluminal Device, Percutaneous Approach (ICD-10-PCS; CPT 92928; 2021-12-25 10:45)
PROC: 4A023N7 Measurement of Cardiac Sampling and Pressure, Left Heart, Percutaneous Approach (ICD-10-PCS; CPT 93452; 2021-12-25 10:45)
DX: I21.4 Non-ST elevation (NSTEMI) myocardial infarction (principal); F17.210 Nicotine dependence, cigarettes, uncomplicated; I25.10 Atherosclerotic heart disease of native coronary artery without angina pectoris; F41.8 Other specified anxiety disorders; Z20.822 Contact with and (suspected) exposure to COVID-19; Z28.21 Immunization not carried out because of patient refusal; Z79.899 Other long term (current) drug therapy
CPT/HCPCS: 36415; 71046; 71275; 76705; 80053; 82728; 83605; 83690; 83735; 84439; 84443; 84480; 84484; 85025; 85380; 85610; 85730; 86140; 93005; 93458; 99285; A9270; C1725; C1769; C1874; C1887; C1894; C8929; C9113; C9600; C9803; J0583; J1644; J2250; J2270; J2405; J3010; J7030; J7040; Q9957; Q9967; U0003; U0005

== ENCOUNTER 2022-05-28 12:38 | Emergency (ER) | payer BC, SELFPAY ==
[2022-05-28 12:48] VITALS: BP 119/71; PULSE 66; RESP 14; TEMP 36.5; O2SAT 99
--- NOTE | 2022-05-28 13:40 | ED.URI ---
HPI - URI/Sore Throat General Chief Complaint: Upper Respiratory Infection Stated Complaint: productive cough; dizziness; headpain during cough Time Seen by Provider: 05/28/22 13:40 Source: patient, RN notes reviewed and old records reviewed Mode of arrival: ambulatory Limitations: no limitations History of Present Illness HPI Narrative: 52 year old female who presents to [facility] with complaints of productive cough for 1 mo duration and post nasal drainage, reports that her ears hurt with cough and the top of her head hurts when she coughs also. Patient denies any recent fevers or any sore throat. Patient reports that she had the flu in March and she has not felt well since then. Patient is daily smoker of reported 1/4 ppd for 30 years. She states that she has been taking some NyQuil and sinus medications and some left over antibiotics.for her symptoms. Patient did have a NSTEMI in December of 2021 and has 1 cardiac stent. Patient has had COVID vaccines X2 and did not have flu shot. MD elicited complaint: cough (productive), rhinorrhea, nasal congestion and other (headache and ear pain with cough) Pertinent past history: seasonal allergies and other (NSTEMI December 2021 with stent placed) Onset (ago): month(s) (1) Consistency: progressively worsening Treatments prior to arrival: cold medicine , antibiotics (left over,) and other (sinus med) Related Data Home Medications Medication Instructions Recorded Confirmed atorvastatin 40 mg tablet 40 mg PO DAILY 05/28/22 05/28/22 Allergies Allergy/AdvReac Type Severity Reaction Status Date / Time No Known Allergies Allergy Verified 05/28/22 12:58 Review of Systems Review of Systems: CONSTITUTIONAL: Denies fever, chills, or sweats. EYES: Denies visual changes, redness, or discharge. ENT:REports rhinorrhea, congestion,no sore throat,reports otalgia with cough CARDIOVASCULAR: Denies chest pain, palpitations, or edema. RESPIRATORY:Reports productive cough denies any acute dyspnea. GASTROINTESTINAL: Denies abdominal pain, nausea, vomiting, or diarrhea. GENITOURINARY: Denies dysuria or hematuria. SKIN: Denies rash or itching. MUSCULOSKELETAL: Denies back pain, joint pain, or myalgia. NEUROLOGIC: reports headache with cough, no, numbness, or weakness. PSYCHIATRIC: Positive for anxiety or depression. All systems reviewed & are unremarkable except as noted in HPI and below PMFSH Past Medical History Medical History Acute non-ST elevation myocardial infarction (NSTEMI) Acute sinus infection Depression with anxiety Seasonal allergies Tobacco use Surgical History Surgical History H/O heart artery stent H/O tubal ligation Family History Family History Grandparent Heart disease Father MVA (motor vehicle accident) Mother MVA (motor vehicle accident) Social History Social History Social History: The patient is and lives with her . She had 2 children but one is now . Her is the poa. She still continues to smoke 6 cigarettes a day. 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 She stated that she is a Social drinker. She denies any marijuana or other illicit drugs. Code status full code Smoking status: Current every day smoker Tobacco type: cigarettes Spiritual care concerns: No Comments At time of signature, agree with nursing past medical, surgical, social and family history. There is no relevant family history pertinent to the presenting complaint Exam Narrative: GENERAL: Well-appearing, well-nourished, and in no acute distress. HEAD: Normocephalic, atraumatic. EYES: PERRL
== END 2022-05-28 14:00 | disposition home or self-care (01) ==
PROVIDERS: Emergency Provider Registered Nurse; PCP Family Medicine Sports Medicine
DX: J32.9 Chronic sinusitis, unspecified (principal); R05.9 Cough, unspecified; I25.2 Old myocardial infarction
CPT/HCPCS: 99213; G0463

== ENCOUNTER 2022-06-24 10:18 | Emergency (ER) | payer BC, SELFPAY ==
--- NOTE | ~2022-06-24 | CT_ITS ---
EXAMINATION: CT abdomen pelvis w con INDICATION: Left lower quadrant pain TECHNIQUE: Computed tomographic images of the abdomen and pelvis were obtained after the administrati on of 100 cc of Omnipaque 350 intravenous contrast. The dose-length product (DLP) was 953.76 mGy-cm. Automated exposure control and iterative reconstruction technique were employed. COMPARISON: None available FINDINGS: Minimal dependent atelectasis is present in the lung bases. The heart size is normal. The l iver is diffusely low in attenuation when compared with the spleen, consistent with hepatic steatosis . The spleen, pancreas, gallbladder, and adrenal glands are normal. The kidneys are unremarkable. No pathologically enlarged abdominal or pelvic lymph nodes are identified. No free intraperitoneal gas o r evidence of bowel obstruction. The appendix is normal. There is colonic diverticulosis. Mild inflam matory stranding is seen adjacent to a diverticulum of the proximal sigmoid colon. There is no eviden ce of perforation or associated abscess. There is moderate lumbar spondylosis at L5-S1. IMPRESSION: 1. Mild uncomplicated sigmoid diverticulitis. Reviewed, dictated and finalized at location L.
[2022-06-24 10:19] VITALS: BP 146/96; PULSE 112; RESP 16; TEMP 36.4; O2SAT 99
[2022-06-24 10:44] LABS: Basophils Absolute Auto 0.1 K/mm3 (0.0-0.1); Basophils Percent Auto 0.5 % (0.2-1.2); Eosinophils Absolute Auto 0.3 K/mm3 (0-0.3); Eosinophils Percent Auto 2.8 % (0-4.4); Hematocrit 43.7 % (37.0-47.0); Hemoglobin 14.5 g/dL (12.0-15.0); Immature Granulocyte Absolute 0.03 K/mm3 (0.00-0.031); Immature Granulocyte Percent A 0.3 % (0-0.5); Lymphocytes Absolute Auto 3.88 K/mm3 (0.9-3.2); Lymphocytes Percent Auto 35.1 % (18.3-44.2); Mean Corpuscular HGB Conc 33.2 g/dl (32-36); Mean Corpuscular Hemoglobin 30.7 pg (26-34); Mean Corpuscular Volume 92.4 fl (80-100); Mean Platelet Volume 10.1 fl (7.4-10.4); Monocytes Absolute Auto 0.8 K/mm3 (0.1-0.6); Monocytes Percent Auto 7.2 % (2.6-8.5); Neutrophils Percent Auto 54.1 % (45.5-73.1); Platelet Count Result 271 k/mm3 (150-375); Red Blood Count 4.73 M/mm3 (4.2-5.4); White Blood Count 11.1 K/mm3 (4.5-10.0)
[2022-06-24 10:51] LABS: Lactic Acid Reflex 2.6 mmol/L (0.7-2.0)
[2022-06-24 10:52] LABS: Alanine Aminotransferase 96 U/L (6-35); Albumin Level 4.9 g/dL (3.5-5.1); Alkaline Phosphatase 171 U/L (38-126); Anion Gap 10 mmol/L (8-16); Aspartate Amino Transferase 76 U/L (14-36); Bilirubin,Total 0.7 mg/dL (0.2-1.3); Blood Urea Nitrogen 9 mg/dL (7-17); Calcium 9.4 mg/dL (8.4-10.2); Carbon Dioxide 28 mmol/L (22-30); Chloride 101 mmol/L (98-107); Estimated CRCL calculation 69 ml/min; Estimated Glomerular Filt Rate > 60; Glucose 223 mg/dL (65-110); Lipase 164 U/L (23-300); Sodium 139 mmol/L (137-145)
--- NOTE | 2022-06-24 11:00 | ED.ABDPAIN ---
HPI - Abdominal Pain General Chief Complaint: Abdominal Pain Stated Complaint: L. sided abd pain Time Seen by Provider: 06/24/22 10:29 History of Present Illness HPI narrative: Patient is a 52-year-old female with a history of CAD presenting with abdominal pain. Patient states that since last night she has had left-sided abdominal pain that waxes and wanes in intensity. States that it is very severe when at its most intense. States that she feels nauseated secondary to the pain. States she did have an episode of diarrhea yesterday. No vomiting. She reports dysuria but no hematuria. Denies history of kidney stones. No fevers or chills, headache, numbness or weakness, leg swelling, cough, chest pain, shortness of breath. Related Data Allergies Allergy/AdvReac Type Severity Reaction Status Date / Time No Known Allergies Allergy Verified 06/24/22 10:33 Review of Systems Review of Systems: All systems reviewed & are unremarkable except as noted in HPI and below Exam Narrative: GENERAL: Sitting up in bed, appears uncomfortable, pleasant and cooperative HEAD: Normocephalic, atraumatic. EYES: PERRLA and EOMI. ENT: Nares clear, no rhinorrhea or epistaxis. Mucous membranes moist. NECK: Supple. CHEST: Clear to auscultation. No respiratory distress. HEART: Regular rate and rhythm. . Normal peripheral pulses. ABDOMEN: Soft, tender in the left lower quadrant and suprapubic region, no guarding or rebound EXTREMITIES: Normal range of motion. No edema. SKIN: Warm, dry, no rash. NEURO: No focal deficits. Alert and oriented x3. PSYCH: Normal mood and affect. Course Vital Signs Vital signs: Vital Signs Temperature 97.6 F 06/24/22 10:19 Pulse Rate 112 H 06/24/22 10:19 Respiratory Rate 16 06/24/22 10:19 Blood Pressure 146/96 H 06/24/22 10:19 Pulse Oximetry 99 06/24/22 10:19 Oxygen Delivery Room Air 06/24/22 10:19 Temperature 97.6 F 06/24/22 10:19 Pulse Rate 86 06/24/22 14:07 Respiratory Rate 16 06/24/22 14:07 Blood Pressure 142/86 H 06/24/22 14:07 Pulse Oximetry 98 06/24/22 14:07 Oxygen Delivery Room Air 06/24/22 10:19 MDM - Abdominal Pain MDM Narrative Medical decision making narrative: Patient is a 52-year-old female presenting with left lower quadrant and suprapubic pain. Patient is a bit tachycardic and hypertensive, otherwise vitals are within normal limits. Exam is remarkable for the above. Plan for blood work, CT scan. Will give fluids, pain meds, Zofran. Blood work with mild leukocytosis. Renal function is normal. Normal electrolytes. CT abdomen pelvis shows mild uncomplicated sigmoid diverticulitis. UA is contaminated. Patient will be started on antibiotics for the diverticulitis and this will cover any potential UTI as well. On reevaluation, the patient states that the pain has improved. Oral oxy and a dose of Augmentin has been ordered. On my third reevaluation, the patient states that she feels much more comfortable. She feels comfortable going home. States that she already has an appointment with her PCP in 10 days. We will get her started on Augmentin and give her a short course of oxycodone for pain control. Advised Tylenol and ibuprofen as well. We will provide a prescription for Zofran. Appropriate return precautions given. Patient voiced understanding and is agreeable with plan. Discharged in stable condition. Differential Diagnosis Differential diagnosis: Likely abdominal pain, calculus of kidney, diverticulitis, gastroenteritis, pancreatitis and small bowel obstruction Lab Data 06/24/22 10:35 06/24/22 10:35 Labs: Lab Results 06/24/22 06/24/22 06/24/22 Range/Units 10:35 10:35 10:35 WBC 11.1 H (4.5-10.0) K/mm3 RBC 4.73 (4.2-5.4) M/mm3 Hgb 14.5 (12.0-15.0) g/dL Hct 43.7 (37.0-47.0) % MCV 92.4 (80-100) fl MCH 30.7 (26-34) pg MCHC 33.2 (32-36) g/dl RDW 13.0 (11.5-14.5) % Pl
[2022-06-24 11:03] LABS: Appearance Urine Cloudy (Clear); Bacteria Urine 4+ /hpf; Bilirubin Urine 1+ (Negative); Blood Urine Negative (Negative); Color Urine Dark Yellow (Yellow); Glucose Urine UA Negative (Negative); Ketones Urine Trace mg/dL (Negative); Leukocyte Esterase Ur Negative LEU/UL (Negative); Need Manual Microscopic Reviewed; Nitrate Urine Negative (Negative); Protein Urine 1+ mg/dL (Negative); Squamous Epithelial Cell Urine Moderate /hpf (Few)
[2022-06-24 11:05] LABS: Add Urine Microscopic? YES
[2022-06-24] MEDS: HYDROmorphone HCL INJ (*CRX) 1 MG/ML SYR 0.5 MG IV PUSH (11:21)
[2022-06-24] MEDS: ONDANSETRON INJ 4 MG/2 ML VIAL IV PUSH (11:21)
[2022-06-24] MEDS: SODIUM CHLORIDE 0.9% IV 1,000 ML 999 ML IV CONT (11:22)
[2022-06-24 11:26] VITALS: BP 133/91; PULSE 80; RESP 18; O2SAT 97
[2022-06-24] MEDS: KETOROLAC 15 MG/ML VIAL (*BKC) IV PUSH (12:43)
[2022-06-24] MEDS: AMOXICILLIN/CLAVULANATE K 875-125 MG TAB 1 TABLET PO (13:00)
[2022-06-24] MEDS: oxyCODONE HCL (*CRX) 5 MG TAB IR PO (13:01)
[2022-06-24 13:39] LABS: Reflex Lactic Acid Yes or No Add Lactic
[2022-06-24 14:07] VITALS: BP 142/86; PULSE 86; RESP 16; O2SAT 98
== END 2022-06-24 14:07 | disposition home or self-care (01) ==
PROVIDERS: Emergency Provider Emergency Medicine; PCP Family Medicine Sports Medicine
DX: K57.32 Diverticulitis of large intestine without perforation or abscess without bleeding (principal)
CPT/HCPCS: 36415; 74177; 80053; 81001; 83605; 83690; 85025; 87086; 96365; 96375; 99284; A9270; J0131; J1170; J1885; J2405; J7030; Q9967

== ENCOUNTER 2022-07-16 10:32 | Outpatient (CLI) | payer OTHER, SELFPAY ==
[2022-07-16 10:55] LABS: Basophils Percent Auto 0.4 % (0.2-1.2); Eosinophils Absolute Auto 0.3 K/mm3 (0-0.3); Eosinophils Percent Auto 2.9 % (0-4.4); Hemoglobin 14.7 g/dL (12.0-15.0); Immature Granulocyte Absolute 0.03 K/mm3 (0.00-0.031); Immature Granulocyte Percent A 0.3 % (0-0.5); Lymphocytes Absolute Auto 2.51 K/mm3 (0.9-3.2); Lymphocytes Percent Auto 24.8 % (18.3-44.2); Mean Corpuscular HGB Conc 33.4 g/dl (32-36); Mean Corpuscular Hemoglobin 30.4 pg (26-34); Mean Corpuscular Volume 90.9 fl (80-100); Mean Platelet Volume 10.1 fl (7.4-10.4); Monocytes Absolute Auto 0.6 K/mm3 (0.1-0.6); Monocytes Percent Auto 6.3 % (2.6-8.5); Neutrophils Absolute Auto 6.6 K/mm3 (1.3-6.7); Neutrophils Percent Auto 65.3 % (45.5-73.1); Platelet Count Result 257 k/mm3 (150-375); Red Blood Count 4.84 M/mm3 (4.2-5.4); White Blood Count 10.1 K/mm3 (4.5-10.0)
[2022-07-16 11:06] LABS: Alanine Aminotransferase 180 U/L (6-35); Albumin Level 4.5 g/dL (3.5-5.1); Alkaline Phosphatase 177 U/L (38-126); Anion Gap 6 mmol/L (8-16); Aspartate Amino Transferase 127 U/L (14-36); Bilirubin,Total 0.6 mg/dL (0.2-1.3); Blood Urea Nitrogen 12 mg/dL (7-17); Carbon Dioxide 27 mmol/L (22-30); Chloride 105 mmol/L (98-107); Estimated Glomerular Filt Rate > 60; Glucose 190 mg/dL (65-110); Potassium 4.2 mmol/L (3.4-5.0); Sodium 138 mmol/L (137-145)
== END 2022-07-16 10:33 | disposition home or self-care (01) ==
PROVIDERS: PCP Family Medicine Sports Medicine; Visit Provider Internal Medicine Cardiovascular Disease
DX: Z01.810 Encounter for preprocedural cardiovascular examination (principal); I25.110 Atherosclerotic heart disease of native coronary artery with unstable angina pectoris
CPT/HCPCS: 36415; 80053; 85025

== ENCOUNTER 2023-05-09 09:22 | Outpatient (CLI) | payer OTHER, SELFPAY | END 2023-05-09 09:23 | disposition home or self-care (01) | LOC: ANHLAB 09:26 | PROVIDERS: PCP Family Medicine Sports Medicine; Visit Provider Internal Medicine Cardiovascular Disease | DX: I25.118 Atherosclerotic heart disease of native coronary artery with other forms of angina pectoris (principal) | CPT/HCPCS: 36415; 83036 ==